=== PATIENT | female | born 1965 | race Caucasian/White ===

== ENCOUNTER 2017-10-30 06:07 | Day surgery (SDC) | payer OTHER ==
[2017-10-30] MEDS ORDERED: PROPOFOL 40 ML (07:44)
== END 2017-10-30 09:45 | disposition home or self-care (01) ==
LOC: GIL 06:07
DX: Z12.11 Encounter for screening for malignant neoplasm of colon (principal); K64.8 Other hemorrhoids; K57.90 Diverticulosis of intestine, part unspecified, without perforation or abscess without bleeding; E11.9 Type 2 diabetes mellitus without complications; E66.01 Morbid (severe) obesity due to excess calories; Z68.38 Body mass index [BMI] 38.0-38.9, adult
CPT/HCPCS: 45378; 82962; 84703